=== PATIENT | female | born 1995 | race Caucasian/White ===

== ENCOUNTER 2019-07-24 11:08 | Emergency (ER) | payer BC, SELFPAY ==
[~2019-07-24] VITALS: Ht 162.6 cm; Wt 73.5 kg
[2019-07-24] MEDS ORDERED: MULTCAP PO (11:17)
[2019-07-24] MEDS ORDERED: AMOX500C PO (11:17)
[2019-07-24] MEDS ORDERED: NS 1,000 ML IV ONE (12:30)
[2019-07-24] MEDS ORDERED: AMPICILLIN SOD/SULBACTAM SOD 3 GM in D5W MINI-BAG PLUS 100 ML IV ONE (12:30)
[2019-07-24] MEDS ORDERED: KETOROLAC 30 MG/ML VIAL (J1885) IV ONE (12:30)
[2019-07-24 13:00] LABS: HEMATOCRIT 40.3 % (36.0-47.0); HEMOGLOBIN 13.4 g/dl (12.0-15.5); MEAN CORPUSCULAR VOLUME 89.6 fl (80.0-96.0); WHITE BLOOD COUNT 16.6 10^3/uL (4.0-10.0)
[2019-07-24 13:01] LABS: BASO % 0.2 % (0.0-1.0); EOS % 0.1 % (0.0-3.0); LYMPH % 12.3 % (24.0-44.0); MEAN CORPUSCULAR HEMOGLOBIN 29.8 pg (27.0-33.0); MEAN CORPUSCULAR HGB CONC 33.3 g/dl (32.0-36.5); MONO # 1.5 10^3/uL (0.0-0.8); MONO % 8.9 % (0.0-5.0); PLATELET COUNT, AUTOMATED 361 10^3/uL (150-450)
[2019-07-24 13:10] LABS: BLOOD UREA NITROGEN 9 MG/DL (7-18); C REACTIVE PROTEIN QUANTITATIV 1.98 MG/DL (0.00-0.30); CARBON DIOXIDE LEVEL 25 MEQ/L (21-32); CHLORIDE LEVEL 105 MEQ/L (98-107); CREATININE FOR GFR 0.75 MG/DL (0.55-1.30); GLOMERULAR FILTRATION RATE > 60.0 (>60); GLUCOSE, FASTING 85 MG/DL (70-100); POTASSIUM SERUM 3.4 MEQ/L (3.5-5.1); SODIUM LEVEL 140 MEQ/L (136-145)
[2019-07-24 13:35] VITALS: BP 134/78
[2019-07-25] MEDS ORDERED: IBUP-1022 (11:23)
[2019-07-25] MEDS ORDERED: HYDR-3713 (11:23)
[2019-07-25] MEDS ORDERED: ACET-683 PO (11:23)
== END 2019-07-24 14:20 | disposition home or self-care (01) ==
LOC: M ED 11:08
DX: K04.7 Periapical abscess without sinus (principal); L03.211 Cellulitis of face
CPT/HCPCS: 80048; 85025; 86140; 87040; 96361; 96365; 96375; 99284; J1885

== ENCOUNTER 2019-07-25 11:18 | Emergency (ER) | payer BC, SELFPAY ==
[~2019-07-25] VITALS: Ht 162.6 cm; Wt 74.4 kg
[~2019-07-25 11:18] MED LIST: AMOX500C PO; MULTCAP PO
[2019-07-25] MEDS ORDERED: IBUP-1022 (11:23)
[2019-07-25] MEDS ORDERED: ACET-683 PO (11:23)
[2019-07-25] MEDS ORDERED: HYDR-3713 (11:23)
[2019-07-25] MEDS ORDERED: AMPICILLIN SOD/SULBACTAM SOD 3 GM in D5W MINI-BAG PLUS 100 ML IV ONE (11:30)
[2019-07-25 11:49] LABS: BASO % 0.4 % (0.0-1.0); EOS # 0.1 10^3/uL (0.0-0.5); EOS % 0.5 % (0.0-3.0); HEMATOCRIT 34.7 % (36.0-47.0); HEMOGLOBIN 11.8 g/dl (12.0-15.5); LYMPH # 2.3 10^3/uL (1.5-5.0); LYMPH % 21.3 % (24.0-44.0); MEAN CORPUSCULAR HEMOGLOBIN 29.7 pg (27.0-33.0); MEAN CORPUSCULAR VOLUME 87.4 fl (80.0-96.0); MONO % 8.8 % (0.0-5.0); NEUTROPHILS # 7.5 10^3/uL (1.5-8.5); NEUTROPHILS % 68.7 % (36.0-66.0); PLATELET COUNT, AUTOMATED 332 10^3/uL (150-450); RED BLOOD COUNT 3.97 10^6/uL (4.00-5.40); WHITE BLOOD COUNT 10.9 10^3/uL (4.0-10.0)
[2019-07-25 12:57] VITALS: BP 118/73
== END 2019-07-25 12:56 | disposition home or self-care (01) ==
LOC: M ED 11:18
DX: K02.9 Dental caries, unspecified (principal); L03.211 Cellulitis of face

== ENCOUNTER → 2022-09-03 | Outpatient (REF) | payer BC ==
[~2022-09-03] MED LIST changes: +ACET-683 PO; +HYDR-3713; +IBUP-1022
== END ==
LOC: M SFHCDERM 12:29
PROVIDERS: ATTEND Nurse Practitioner Family
DX: D22.5 Melanocytic nevi of trunk (principal)